=== PATIENT | male | born 1950 | race Caucasian/White ===

== ENCOUNTER → 2016-06-25 | Outpatient (CLI) | payer MEDICARE, BC ==
--- NOTE | 2016-06-25 08:52 | MR ---
EXAMINATION TYPE: MR shoulder RT wo con DATE OF EXAM: 06/25/2016 7:08 AM COMPARISON: NONE HISTORY: 66-year-old male with right shoulder pain TECHNIQUE: Multiplanar, multisequence imaging of the right shoulder is performed without contrast. FINDINGS: There appears to be an old healed fracture deformity of the posterior greater tuberosity and surgical neck. The fracture appears well healed now though a mild displacement, refer to sagittal T1 image 22 and 24 some roofing sales representative images. There is extensive abnormal signal of the intracapsular portion of the long head biceps tendon. There is tear of the superior half of the subscapularis tendon. Moderate to severe degenerative joint space narrowing with marginal spurring and capsular hypertrophy at the acromial clavicular joint. Undersurface spurring and hypertrophy joint impinge onto the under lying cuff. There is heterogeneous signal within the supraspinatus and infraspinatus tendons with a more extensiv e abnormal signal and tendon thickening along the junction of the infraspinatus and supraspinatus ten dons and suggestion of a superimposed deep articular sided tear measuring 5 mm AP by 6 mm long, sagit krystal image 22 and coronal image 18. There is bursal sided fraying more proximally at the junction of the supraspinatus and infraspinatus tendons just below lateral acromion and also involving the anterior to mid supraspinatus tendon fiber s. No full-thickness tear of the supraspinatus or infraspinatus tendons. There is a small glenohumeral joint effusion. Subchondral cystic changes seen along the superior rick oid with a large tear of the labrum extending from the biceps anchor down and around to the inferior aspect of the posterior labrum where a 6 mm paralabral cyst is present medially. Moderate to severe degenerative cartilage loss along the mid to inferior anterior humeral head with m arginal spurring, axial image 11. No atrophy of the rotator cuff musculature. There is trace fluid within the subacromial/subdeltoid bu rsa. No Hill-Sachs deformity or os acromiale. No suspicious bone marrow replacement. IMPRESSION: 1. Old well healed surgical neck and posterior greater tuberosity fracture deformities. 2. Underlying glenohumeral joint osteoarthrosis with cartilage loss along the anterior humeral head a nd a degenerated and torn glenoid labrum extending back from superior to inferior. 6 mm inferior para labral cyst. 3. Severe tendinosis at the junction of the supraspinatus and infraspinatus tendons with suggestion o f an underlying small but high-grade articular sided tear measuring 5 x 6 mm. No full-thickness tear is seen. 4. Additional areas of bursal sided fraying of the supraspinatus tendon. Moderate to severe AC joint osteoarthrosis with spurring and bony changes impinging onto the underlying cuff. 5. Tear of the superior half subscapularis tendon fibers and additional tendinosis and partial tear o f the intracapsular long head biceps tendon.
== END | disposition home or self-care (01) ==
LOC: RADMRIMAIN 06:27
PROVIDERS: ATTEND Orthopaedic Surgery
DX: M19.011 Primary osteoarthritis, right shoulder (principal); S43.431A Superior glenoid labrum lesion of right shoulder, initial encounter; M75.21 Bicipital tendinitis, right shoulder

== ENCOUNTER 2016-11-04 06:00 | Day surgery (SDC) | payer MEDICARE, BC ==
[2016-10-26 16:10] VITALS: BMI 32.5
[~2016-11-04 06:00] MED LIST: DEXAMETHASONE SOD PHOSPHATE 10 MG/ML 1 ML VIAL IV ONE; HYDROmorphone 1 MG/ML 1 ML SYRINGE IVP PRN; LACTATED RINGERS 1,000 ML IV SCH; LIDOCAINE 1% 20 ML VIAL (10MG/ML) FOR IV START INTRADERMA PRN; MIDAZOLAM 2 MG/2 ML VIAL IV PRN; ONDANSETRON 4 MG/2 ML VIAL IVP ONE; SCOPOLAMINE 1.5MG/72HR PATCH TRANSDERM ONE; ceFAZolin 2 GM in SODIUM CHLORIDE 0.9% 100 ML IVPB ONE; fentaNYL (PF) 50 MCG/ML 20 ML VIAL IVP PRN
--- NOTE | 2016-11-04 07:13 | P.HPOR ---
History of Present Illness H&P Date: 11/04/16 Chief Complaint: Right shoulder pain 66-year-old patient seen with progressive right shoulder pain. After having treatment options discussed, he elected to proceed with arthroscopy. Past Medical History Past Medical History: Hyperlipidemia, Hypertension, Osteoarthritis (OA), Sleep Apnea/CPAP/BIPAP Additional Past Medical History / Comment(s): does not use cpap History of Any Multi-Drug Resistant Organisms: None Reported Past Surgical History: Orthopedic Surgery Additional Past Surgical History / Comment(s): carpal tunnel dario. neck surgery x2 with titanium plates/screws pt states limited movement moving head to look down, lt shouder arthroscopy, lt arm ulnar nerve surgery, lt hand pinky -2 pins Past Anesthesia/Blood Transfusion Reactions: No Reported Reaction Additional Past Anesthesia/Blood Transfusion Reaction / Comment(s): pt states limited neck movement looking down since neck fusion Smoking Status: Former smoker - Past Family History Mother Family Medical History: No Reported History Medications and Allergies Home Medications Medication Instructions Recorded Confirmed Type Acetaminophen Tab [Tylenol Tab] 500 mg PO DAILY 10/26/16 11/04/16 History Acetaminophen [Tylenol Arthritis] 650 mg PO HS 10/26/16 11/04/16 History Aspirin/Caffeine [Anacin 400-32 mg 1 each PO TID PRN 10/26/16 11/04/16 History Tablet] Atorvastatin [Lipitor] 20 mg PO DAILY 10/26/16 11/04/16 History amLODIPine BESYLATE/BENAZEPRIL 1 cap PO DAILY 10/26/16 11/04/16 History [amLODIPine BESYLATE/BENAZEPRIL 5-20 mg] Allergies Allergy/AdvReac Type Severity Reaction Status Date / Time Penicillins Allergy water Verified 11/04/16 06:14 blisters Sulfa (Sulfonamide AdvReac blisters Verified 11/04/16 06:14 Antibiotics) Physical Examination Osteopathic Statement: *. No significant issues noted on an osteopathic structural exam other than those noted in the History and Physical/Consult. Right shoulder: Flexion 130, abduction 120, external rotation is 30 with pain and weakness. There is tenderness along the anterior lateral acromion and rotator cuff insertion site. Impingement sign is positive at 90. Distal neurovascular exam is intact. Results X-ray right shoulder: Type II anterior acromion, acromioclavicular joint osteoarthritis, old fracture at the greater tuberosity which appears well-healed MRI right shoulder: Rotator cuff tear, acromioclavicular joint osteoarthritis, partial biceps tendon tear Assessment and Plan Plan: Assessment: Right shoulder impingement with rotator cuff tear, acromioclavicular joint osteoarthritis and partial biceps tendon tear Plan: Arthroscopy right shoulder with subacromial decompression, possible arthroscopic rotator cuff tear, probable Сергей procedure, possible biceps tendon release and debridement
[2016-11-04] MEDS ORDERED: ROPIVACAINE 5 MG/ML 30 ML VIAL ONE (07:25)
[2016-11-04] MEDS ORDERED: fentaNYL (PF) 50 MCG/ML 2 ML AMP ONE (07:25)
[2016-11-04] MEDS ORDERED: PROPOFOL 10 MG/ML 20 ML VIAL IV ONE (07:25)
[2016-11-04] MEDS ORDERED: LIDOCAINE 2%-EPI 1:100,000 20 ML VIAL ONE (07:25)
[2016-11-04] MEDS ORDERED: NEOSTIGMINE 1 MG/ML 10 ML VIAL ONE (07:25)
[2016-11-04] MEDS ORDERED: MIDAZOLAM 2 MG/2 ML VIAL ONE (07:25)
[2016-11-04] MEDS ORDERED: PHENYLEPHRINE-0.9% NACL SYG 1 MG/10 ML SYRINGE ONE (07:25)
[2016-11-04] MEDS ORDERED: LIDOCAINE 1% INJ 10MG/ML (20 ML MDV) ONE (07:25)
[2016-11-04] MEDS ORDERED: GLYCOPYRROLATE 0.2 MG/ML 2 ML VIAL ONE (07:25)
[2016-11-04] MEDS ORDERED: ROCURONIUM BROMIDE 10 MG/ML 10 ML VIAL IV ONE (07:25)
[2016-11-04] MEDS ORDERED: SUCCINYLCHOLINE CHLORIDE 100 MG/5 ML SYR IV ONE (07:25)
[2016-11-04] MEDS ORDERED: LACTATED RINGERS 1,000 ML IV ONE (08:57)
[2016-11-04 09:14] VITALS: TEMP 96.8
--- NOTE | 2016-11-04 09:15 | P.OP ---
Date of Procedure: 11/04/16 Preoperative Diagnosis: Right shoulder impingement Postoperative Diagnosis: 1. Right shoulder rotator cuff tear 2. Right shoulder impingement 3. Right shoulder acromioclavicular joint osteoarthritis 4. Right shoulder partial long head biceps tendon tear 5. Right shoulder superficial superior/anterior labral tear Procedure(s) Performed: 1. Right shoulder arthroscopic rotator cuff repair 2. Right shoulder arthroscopic subacromial decompression 3. Right shoulder arthroscopic Сергей procedure 4. Right shoulder arthroscopic biceps tenotomy 5. Right shoulder arthroscopic debridement labral tear Implants: 1-4.5 peek anchors Anesthesia: GETA, regional (Shoulder block) Surgeon: Beau Hernandez Gear Keeper #1: Harjinder Kat Estimated Blood Loss (ml): 15 Pathology: none sent Condition: stable Disposition: PACU Indications for Procedure: 66-year-old patient seen with progressive right shoulder pain. After having treatment options discussed he elected to proceed with arthroscopy. Operative Findings: See description of procedure Description of Procedure: Patient underwent a shoulder block by department of anesthesia. The patient was then taken to the operative suite. The patient underwent a general anesthetic by the department of anesthesia. The patient was placed into a lateral position and secured. There was appropriate padding of the bony prominence. [] shoulder was then prepped and draped in normal sterile orthopedic fashion. We placed the extremity in 10 pounds of longitudinal traction. A posterior incision was now made for a posterior working portal site. The trocar and cannula were inserted into the glenohumeral joint. Arthroscopy was initiated. Spinal needle was now inserted anteriorly, to ascertain the anterior working portal site. An incision was now made in that area, a trocar was inserted followed by a probe. There was superficial tearing of both the superior and anterior labrum present. There were some grade 1 chondral malacia changes of glenoid fossa. There was about 50-60 percent partial tearing of the biceps tendon present. There was an obvious small rotator cuff tear visualized from the glenohumeral side. It appeared to involve the area of the distal supraspinatus anteriorly. The posterior and inferior labrum were intact. There were no loose bodies. I performed an arthroscopic biceps tenotomy. I debrided the labral tears down to stable tissue. The residual labrum was probed and found to be stable. Instruments now removed from subacromial space. Utilizing the posterior working portal site, the trocar and cannula were inserted into the subacromial space. Arthroscopy initiated. I made an incision 2 fingerbreadths lateral to the acromion. I introduced my trocar followed by my ArthroCare ablator. I now began ablating thick subacromial bursal tissue, which exposed the undersurface of the anterior acromion. This was diminished subacromial space. There was a very prominent anterior acromion. A motorized bur was introduced and a subacromial decompression was performed. I also excised some osteophytes off the inferior aspect of the distal clavicle. The AC joint was visualized and noted to be fairly arthritic. Our motorized bur was introduced in the anterior portal site and a Сергей procedure was performed without difficulty, decompressing the AC joint nicely. I turned my attention to the rotator cuff. We found the distal supraspinatus tendon tear anteriorly. I debrided the margins down to stable tissue. The tear was about 1-1.5 cm freely mobile over the footprint. I abraded the footprint with a motorized bur. I introduced 2 everted mattress sutures with good bites of rotator cuff tendon. I repaired the tendon back to the footprint with one single 4.5 peek anchor. The residual suture limbs were clipped. The repair was stable. I injected 1 mL Allogen intra-articular. Instruments now removed from the portal sites. All portal sites were approximated with nylon suture. Sterile dressings were applied followed by a shoulder immobilizer. Parveen WESLEY assisted with the procedure. The patient was awakened, transferred to a bed, and taken to recovery in stable condition.
[2016-11-04 09:36] VITALS: RESP 16
[2016-11-04] MEDS ORDERED: HYDROcodone/APAP 7.5-325MG 1 EACH TAB PO ONE (10:40)
[2016-11-04 10:46] VITALS: PULSE 84
[2016-11-04 11:16] VITALS: BP 133/80
== END 2016-11-04 11:47 | disposition home or self-care (01) ==
LOC: OR 06:00
PROVIDERS: ATTEND Orthopaedic Surgery
DX: M75.101 Unspecified rotator cuff tear or rupture of right shoulder, not specified as traumatic (principal); S46.111A Strain of muscle, fascia and tendon of long head of biceps, right arm, initial encounter; S43.401A Unspecified sprain of right shoulder joint, initial encounter; X58.XXXA Exposure to other specified factors, initial encounter; M25.711 Osteophyte, right shoulder; M19.011 Primary osteoarthritis, right shoulder; M75.41 Impingement syndrome of right shoulder; E78.5 Hyperlipidemia, unspecified; I10 Essential (primary) hypertension; Z79.899 Other long term (current) drug therapy; Z88.0 Allergy status to penicillin; Z88.2 Allergy status to sulfonamides
CPT/HCPCS: 64415; 29826; 29827; 29824; C1713; C1765; J2250; J1100; J2710; J0690; J2405; J2001; J3010; J2795; J2370; J0330; J2704

== ENCOUNTER → 2017-09-16 | Outpatient (CLI) | payer MEDICARE, BC ==
--- NOTE | 2017-09-16 13:06 | US ---
EXAMINATION TYPE: US kidneys/renal and bladder DATE OF EXAM: 09/16/2017 COMPARISON: NONE CLINICAL HISTORY: N39.0 Recurrent Urinary Tract Infection. EXAM MEASUREMENTS: Right Kidney: 11.2 x 5.3 x 5.3 cm Left Kidney: 11.1 x 6.3 x 5.2 cm Post Void Residual Volume: 61.0 mL Right Kidney: No hydronephrosis or masses seen Left Kidney: stone measuring 0.5 x 0.4 x 0.7cm, other tiny echogenic foci noted, possible stones Bladder: irregular wall noted when patient emptied Bilateral Jets seen: yes Normal Post Void Residual: no Cortical medullary differentiation is maintained. IMPRESSION: Findings suggest left nephrolithiasis.
== END | disposition home or self-care (01) ==
LOC: RADUSWWP 10:50
PROVIDERS: ATTEND Urology
DX: N39.0 Urinary tract infection, site not specified (principal)
CPT/HCPCS: 76770

== ENCOUNTER → 2017-12-09 | Outpatient (CLI) | payer MEDICARE, BC ==
--- NOTE | 2017-12-09 11:39 | XR ---
EXAMINATION TYPE: XR knee complete RT DATE OF EXAM: 12/09/2017 CLINICAL HISTORY: pain TECHNIQUE: Three views of the right knee are obtained. COMPARISON: None. FINDINGS: There is no acute fracture/dislocation. The tri-compartment joint spaces appear within no rmal limits. The overlying soft tissue appears unremarkable. IMPRESSION: There is no acute fracture or dislocation.ICD 10 NO FRACTURE, INITIAL EVALUATION
== END | disposition home or self-care (01) ==
LOC: RADXRMAIN 11:12
PROVIDERS: ATTEND Family Medicine
DX: M25.561 Pain in right knee (principal)

== ENCOUNTER → 2018-01-05 | Outpatient (CLI) | payer MEDICARE, BC ==
--- NOTE | 2018-01-05 20:59 | MR ---
EXAMINATION TYPE: MR knee RT wo con DATE OF EXAM: 01/05/2018 COMPARISON: Plain film 12/09/2017 HISTORY: Rt knee pain TECHNIQUE: Multiplanar, multisequence imaging of the right knee is performed without IV contrast. FINDINGS: MEDIAL MENISCUS: There is attenuation of the posterior horn of the medial meniscus towards the root w hich may be due to a partial tear, abnormal increased signal is present within the posterior horn of the medial meniscus, there may be some myxoid degeneration extending into the body LATERAL MENISCUS: Anterior and posterior horns are intact without tear. CRUCIATE LIGAMENTS: The anterior and posterior cruciate ligaments are intact and unremarkable. COLLATERAL LIGAMENTS: The medial collateral ligament and lateral collateral ligament complex are inta ct and unremarkable. EXTENSOR MECHANISM: Visualized quadriceps and patellar tendons are intact. EFFUSION: No significant suprapatellar joint effusion. POPLITEAL CYST: Minute semimembranosus gastrocnemius cyst noted TRICOMPARTMENT SPACES: Joint space loss in the medial compartment CARTILAGE: Grade 3 to grade IV chondromalacia at the posterior aspect of the patella, medial compartm ent BONE MARROW SIGNAL: Some probable reactive marrow signal change in the occipital tibia the subchondra l location as well as posterior patella OTHER: Question focal mass effect on the anterior aspect of the popliteal artery, axial image 10 and 11 is indeterminate. Some prepatellar soft tissue edema noted in the subcutaneous fat IMPRESSION: Osteoarthritis. There may be a partial tear of the root of the posterior horn of the medial meniscus, additional findings above. Indeterminate irregularity of the wall of the popliteal artery of questio nable clinical significance and may be related to calcification.
== END | disposition home or self-care (01) ==
LOC: RADMRIMAIN 16:56
PROVIDERS: ATTEND Orthopaedic Surgery
DX: M17.11 Unilateral primary osteoarthritis, right knee (principal)

== ENCOUNTER 2018-03-23 08:29 | Day surgery (SDC) | payer MEDICARE, BC ==
[2018-03-20 12:22] VITALS: BMI 31.4
--- NOTE | 2018-03-22 16:04 | HP ---
HISTORY AND PHYSICAL DATE OF SURGERY: 03/23/2018 Abraham Boles is a 67-year-old patient seen with progressive right knee pain. After treatment options were discussed with him, he elected to proceed with right knee arthroscopy. Consent was obtained. PAST MEDICAL HISTORY: Hypertension. PAST SURGICAL HISTORY: Noncontributory. DAILY MEDICATIONS: Amlodipine/benazepril. ALLERGIES: PENICILLIN and SULFA. SOCIAL HISTORY: Patient denies tobacco use. PHYSICAL EVALUATION OF RIGHT KNEE: Range of motion 0 to 130 degrees. Tenderness along the medial joint line. Positive medial Omega's. Ligaments stable. Hip rotation without pain. Distal neurovascular exam intact. RIGHT KNEE RADIOGRAPHS: Right knee radiographs revealed mild to moderate medial compartment osteoarthritis. Right knee MRI revealed a medial meniscal tear. IMPRESSION: Internal derangement of right knee with medial meniscal tear. PLAN: Right knee arthroscopy with partial meniscectomy and debridement. MMODL / IJN: [id number] /
[~2018-03-23 08:29] MED LIST changes: +HYDROmorphone 0.5 MG/0.5 ML SYRINGE IVP PRN; -HYDROmorphone 1 MG/ML 1 ML SYRINGE IVP PRN; -MIDAZOLAM 2 MG/2 ML VIAL IV PRN; -ceFAZolin 2 GM in SODIUM CHLORIDE 0.9% 100 ML IVPB ONE; +ceFAZolin IN SWFI 2 GM/20 ML SYRINGE IVP ONE; -fentaNYL (PF) 50 MCG/ML 20 ML VIAL IVP PRN
[2018-03-23 09:10] LABS: Glucose,Whole Blood 116 mg/dL (75-99)
[2018-03-23] MEDS ORDERED: PROPOFOL 10 MG/ML 20 ML VIAL IV ONE (09:24)
[2018-03-23] MEDS ORDERED: fentaNYL (PF) 50 MCG/ML 2 ML AMP ONE (09:24)
[2018-03-23] MEDS ORDERED: SUCCINYLCHOLINE CHLORIDE 100 MG/5 ML SYR IV ONE (09:24)
[2018-03-23] MEDS ORDERED: MIDAZOLAM 2 MG/2 ML VIAL ONE (09:24)
[2018-03-23] MEDS ORDERED: LIDOCAINE 1% INJ 10MG/ML (20 ML MDV) ONE (09:24)
[2018-03-23] MEDS ORDERED: BUPIVACAIN-EPI 0.25%-1:200,000 30 ML VIAL INTRAARTIC ONE (09:28)
--- NOTE | 2018-03-23 10:03 | P.OP ---
Date of Procedure: 03/23/18 Preoperative Diagnosis: Internal derangement right knee Postoperative Diagnosis: 1. Tear medial meniscus right knee 2. Grade 2/3 chondromalacia medial femoral condyle right knee 3. Reactive synovitis medial and suprapatellar compartments right knee Procedure(s) Performed: 1. Arthroscopic partial medial meniscectomy right knee 2. Arthroscopic chondroplasty medial femoral condyle right knee 3. Arthroscopic partial synovectomy medial and suprapatellar compartments right knee Anesthesia: GETA, local Surgeon: Beau Hernandez Estimated Blood Loss (ml): 5 Pathology: none sent Condition: stable Disposition: PACU Indications for Procedure: 67-year-old patient seen with progressive right knee pain. After we had treatment options discussed with him, he elected to proceed with arthroscopy. Operative Findings: See description of procedure Description of Procedure: Patient was taken to the operative suite. Patient underwent a general anesthetic by the department of anesthesia. Patient was given preoperative antibiotics. The right lower extremity was placed in a well-padded arthroscopic leg shannon. The right leg was prepped and draped in the normal sterile orthopedic fashion. A lateral parapatellar and suprapatellar incision was made. Trochars were inserted. Arthroscopy was initiated. Suprapatellar pouch revealed diffuse thick reactive synovitis. The patellofemoral joint appeared to articulate congruently. There was grade 1 chondromalacia changes of the patella with no osteochondral tears present. The scope was guided into the medial gutter. No loose body or plica were identified. The scope was then guided into the medial compartment. A medial parapatellar incision was made. Trocar inserted followed by probe. There was a radial tear posterior horn medial meniscus. There were grade 2/3 chondromalacia changes of the medial femoral condyle with some osteochondral tears present. There was thick reactive synovitis anteriorly. I performed a partial medial meniscectomy down to stable tissue. I performed a chondroplasty of the medial femoral condyle down to stable tissue. I performed a partial synovectomy decompressing the reactive synovitis anteriorly. The residual meniscus was stable. The residual osteochondral surface was stable. There was good decompression of the synovitis. Scope and probe were then guided into the intercondylar notch. Cruciates were identified, probed and found to be stable. The scope and probe were then guided into lateral compartment. Lateral meniscus was probed and found to be stable. There was no chondromalacia present. There was no synovitis present. The scope was in guided back into the suprapatellar compartment. I introduced a motorized shaver into the super patellar compartment. I debrided piecemeal fragments of meniscus I encountered. I performed a partial synovectomy decompressing the reactive synovitis. There was good decompression of the synovitis. The shaver was removed. I took one more look on the entire knee, no residual debris. Instruments were now removed from the joint. The joint was infiltrated with .25% Marcaine. Steri-Strips were applied to the portal sites. Sterile dressings were applied. The patient was placed into a ERIKA hose. No tourniquet was utilized. The patient was awakened, transferred to a bed and taken to recovery stable satisfactory condition.
[2018-03-23 10:10] VITALS: TEMP 97.1
[2018-03-23 10:48] VITALS: RESP 16
[2018-03-23 10:48] LABS: Glucose,Whole Blood 133 mg/dL (75-99)
[2018-03-23] MEDS ORDERED: HYDROcodone/APAP 5-325MG 1 EACH TAB PO ONE (11:03)
[2018-03-23 11:20] VITALS: BP 108/67; PULSE 66
== END 2018-03-23 11:36 | disposition home or self-care (01) ==
LOC: OR 08:29
PROVIDERS: ATTEND Orthopaedic Surgery
DX: S83.241A Other tear of medial meniscus, current injury, right knee, initial encounter (principal); X58.XXXA Exposure to other specified factors, initial encounter; M94.261 Chondromalacia, right knee; M22.41 Chondromalacia patellae, right knee; M65.861 Other synovitis and tenosynovitis, right lower leg; M17.11 Unilateral primary osteoarthritis, right knee; I10 Essential (primary) hypertension; E11.9 Type 2 diabetes mellitus without complications; E78.5 Hyperlipidemia, unspecified; G47.33 Obstructive sleep apnea (adult) (pediatric); N40.0 Benign prostatic hyperplasia without lower urinary tract symptoms; Z79.84 Long term (current) use of oral hypoglycemic drugs; Z79.899 Other long term (current) drug therapy; Z88.0 Allergy status to penicillin; Z88.2 Allergy status to sulfonamides
CPT/HCPCS: 29881; J2250; J1100; J2405; J2001; J3010; J0330; J2704; J0690

== ENCOUNTER → 2023-05-28 | Outpatient (CLI) | payer MEDICARE, BC ==
--- NOTE | 2023-06-03 14:08 | MR ---
EXAMINATION TYPE: MR shoulder RT wo con DATE OF EXAM: 05/28/2023 COMPARISON: 06/25/2016 HISTORY: Right shoulder pain. TECHNIQUE: Multiplanar, multisequence imaging of the right shoulder is performed without contrast. FINDINGS: There appears to be an old healed fracture deformity of the posterior greater tuberosity an d surgical neck. Remote right humeral fracture stable. There is extensive abnormal signal of the intracapsular portion of the long head biceps tendon. There is tear of the superior half of the subscapularis tendon. Moderate to severe degenerative joint space narrowing with marginal spurring and capsular hypertrophy at the acromial clavicular joint. Undersurface spurring and hypertrophy joint impinge onto the under lying cuff. There is abnormal signal involving the inferior glenohumeral ligament suspicious for strain or partia l tear. There is linear signal involving the humeral head which may be postoperative. There is heterogeneous signal within the supraspinatus and infraspinatus tendons with a more extensiv e abnormal signal and tendon thickening along the junction of the infraspinatus and supraspinatus ten dons and suggestion of a superimposed deep articular sided tear measuring 5 mm AP by 6 mm long. There is bursal sided fraying more proximally at the junction of the supraspinatus and infraspinatus tendons just below lateral acromion and also involving the anterior to mid supraspinatus tendon fiber s. No full-thickness tear of the supraspinatus or infraspinatus tendons. There is a small glenohumera l joint effusion. Subchondral cystic changes seen along the superior glenoid with a large tear of the labrum extending from the biceps anchor down and around to the inferior aspect of the posterior labrum where a 6 mm pa ralabral cyst is present medially. Moderate to severe degenerative cartilage loss along the mid to inferior anterior humeral head with m arginal spurring. No atrophy of the rotator cuff musculature. There is trace fluid within the subacr omial/subdeltoid bursa. No Hill-Sachs deformity or os acromiale. No suspicious bone marrow replacemen t. IMPRESSION: 1. Stable Old well healed surgical neck and posterior greater tuberosity fracture deformities. 2. Underlying glenohumeral joint osteoarthrosis with cartilage loss along the anterior humeral head a nd a degenerated and torn glenoid labrum extending back from superior to inferior. 3. Severe tendinosis at the junction of the supraspinatus and infraspinatus tendons with suggestion o f an underlying small but high-grade articular sided tear measuring 5 x 6 mm. No full- thickness tear is seen. Findings similar to prior exam. 4. Additional areas of bursal sided fraying of the supraspinatus tendon. Moderate to severe AC joint osteoarthrosis with spurring and bony changes impinging onto the underlying cuff. 5. Tear of the superior half subscapularis tendon fibers and additional tendinosis and partial tear o f the intracapsular long head biceps tendon. Findings similar to prior exam.
== END | disposition home or self-care (01) ==
LOC: RADMRIMAIN 11:56
PROVIDERS: ATTEND Orthopaedic Surgery
DX: M19.011 Primary osteoarthritis, right shoulder (principal); M67.813 Other specified disorders of tendon, right shoulder; M75.111 Incomplete rotator cuff tear or rupture of right shoulder, not specified as traumatic

== ENCOUNTER 2023-07-07 09:43 | Day surgery (SDC) | payer MEDICARE, BC ==
--- NOTE | 2023-07-06 23:44 | HP ---
HISTORY AND PHYSICAL DATE OF SCHEDULED SURGERY: 07/07/2023. HISTORY OF PRESENT ILLNESS: Abraham Boles is a 73-year-old gentleman seen with progressive right shoulder pain. We discussed options regarding the treatment. He elected to proceed with right shoulder arthroscopy. Consent is obtained. Medical clearance was provided by Dr. Mcrae. PAST MEDICAL HISTORY: Hypertension. SURGICAL HISTORY: Knee arthroscopy, rotator cuff repair, carpal tunnel release. DAILY MEDICATIONS: 1. Amlodipine. 2. Benazepril. 3. Metformin. ALLERGIES: Penicillin, sulfa. SOCIAL HISTORY: Denies tobacco use. PHYSICAL EVALUATION OF RIGHT SHOULDER: Flexion is 150 degrees, abduction is 140 degrees. External rotation is 10 degrees. No weakness or pain. Tenderness along the anterolateral acromion rotator cuff insertion sites. Impingement is positive at 100 degrees. Drop-arm sign is positive. Distal neurovascular exam is intact. RADIOGRAPHS: Right shoulder radiographs reveal cystic changes of the tuberosity. MRI right shoulder revealed rotator cuff tendon tear, acromioclavicular joint osteoarthritis, and labral tear. IMPRESSION: 1. Right shoulder impingement with rotator cuff tear. 2. Right shoulder acromioclavicular joint osteoarthritis. 3. Right shoulder labral tear. 4. Hypertension. 5. Hyperlipidemia. PLAN: Right shoulder arthroscopy with subacromial decompression, arthroscopic rotator cuff repair, Сергей procedure and debridement. MMODL / IJN: [id number] /
[2023-07-07] MEDS ORDERED: fentaNYL (PF) 50 MCG/ML 2 ML AMP IV PRN (09:58)
[2023-07-07] MEDS ORDERED: droPERidol 5 MG/2 ML VIAL IVP ONE (09:58)
[2023-07-07] MEDS ORDERED: LIDOCAINE 1% (10MG/ML) FOR IV START INTRADERMA PRN (09:58)
[2023-07-07 10:45] LABS: Glucose,Whole Blood 166 mg/dL (70-110)
[2023-07-07] MEDS: DEXAMETHASONE SOD PHOSPHATE 4 MG/ML 1 ML VIAL IV ONE (10:55)
[2023-07-07] MEDS: ONDANSETRON 4 MG/2 ML VIAL IVP ONE (10:55)
[2023-07-07] MEDS: fentaNYL (PF) 50 MCG/ML 2 ML AMP IVP ONE (11:06)
[2023-07-07] MEDS: MIDAZOLAM 2 MG/2 ML VIAL IVP ONE (11:06)
[2023-07-07] MEDS: LACTATED RINGERS 1,000 ML IV SCH (11:18)
[2023-07-07] MEDS ORDERED: PROPOFOL 10 MG/ML 20 ML VIAL IV ONE (11:21)
[2023-07-07] MEDS ORDERED: MIDAZOLAM 2 MG/2 ML VIAL ONE (11:21)
[2023-07-07] MEDS ORDERED: ROPIVACAINE 5 MG/ML 30 ML VIAL ONE (11:21)
[2023-07-07] MEDS ORDERED: fentaNYL (PF) 50 MCG/ML 2 ML AMP ONE (11:21)
[2023-07-07] MEDS ORDERED: KETOROLAC 15 MG/ML 1 ML VIAL ONE (11:21)
[2023-07-07] MEDS ORDERED: SUCCINYLCHOLINE CHLORIDE 200 MG/10 ML VIAL IV ONE (11:21)
[2023-07-07] MEDS ORDERED: LIDOCAINE 1% INJ 10MG/ML (20 ML MDV) ONE (11:21)
[2023-07-07] MEDS ORDERED: PHENYLEPHRINE 10 MG/ML VIAL ONE (11:21)
--- NOTE | 2023-07-07 12:41 | P.OP ---
Date of Procedure: 07/07/23 Preoperative Diagnosis: Right shoulder impingement Postoperative Diagnosis: 1. Right shoulder rotator cuff tear 2. Right shoulder impingement 3. Right shoulder superficial labral tear 4. 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 Right shoulder arthroscopic rotator cuff repair 2. Right shoulder arthroscopic subacromial decompression 3. Right shoulder arthroscopic debridement labral tear 4. Right shoulder chondroplasty glenoid fossa Implants: 1Arthrex 4.75 swivel lock anchor Anesthesia: GETA, regional (Interscalene block) Surgeon: Beau Hernandez Swatch Folder #1: Harjinder Kat Estimated Blood Loss (ml): 8 Pathology: none sent Condition: stable Disposition: PACU Indications for Procedure: 73-year-old gentleman seen with progressive right shoulder pain. After having treatment options discussed, he elected to proceed with arthroscopy. Operative Findings: See description of procedure Description of Procedure: Patient underwent an interscalene block by department of anesthesia. The patient was then taken to the operative suite. The patient underwent a general anesthetic by the department of anesthesia. The patient was placed into a lateral position and secured. There was appropriate padding of the bony prominence. Right shoulder was then prepped and draped in normal sterile orthopedic fashion. We placed the extremity in 10 pounds of longitudinal traction. A posterior incision was now made for a posterior working portal site. The trocar and cannula were inserted into the glenohumeral joint. Arthroscopy was initiated. Spinal needle was now inserted anteriorly, to ascertain the anterior working portal site. An incision was now made in that area, a trocar was inserted followed by a probe. There was some superficial tearing of the superior labrum present. There were grade III chondromalacia changes of the glenoid fossa with some osteochondral flap tears along the anterior aspect. There was grade I chondromalacia of the humeral head without tears. The biceps tendon was absent with history of previous biceps tenotomy. I used a motorized shaver and debrided out the superficial labral tear. I now performed a chondroplasty of the glenoid fossa. The residual labrum was stable. The residual osteochondral surface of the glenoid fossa appeared stable. Instruments were now removed from the glenohumeral joint. Utilizing the posterior working portal site, the trocar and cannula were inserted into the subacromial space. Arthroscopy initiated. I made an incision 2 fingerbreadths lateral to the acromion. I introduced my trocar followed by my ArthroCare ablator. I now began ablating thick subacromial bursal tissue, which exposed the undersurface of the anterior acromion. There was a residual spur along the anterior aspect of the acromion. I used a motorized bur and performed a decompression there. We had good decompression of subacromial space at this point. I now visualized the acromioclavicular joint with evidence of previous Сергей procedure. It was stable. I turned my attention to the rotator cuff tendon. There was a tear along the distal supraspinatus tendon measuring about a centimeter. I debrided the margins getting down to stable tendon tissue. The tear was just anterior to her previous repair. The tear now measured about 1.5 cm but was freely mobile over the footprint. I abraded the footprint with a motorized bur. With the assistance of Parveen WESLEY I passed 3 inverted mattress sutures through good bites of rotator cuff tendon. I punched a hole in the footprint area for insertion of an anchor. All 6 limbs of suture were passed through the eyelet of an Arthrex 4.75 swivel lock anchor. I placed the eyelet into our prepunched hole. I held in position while Parveen WESLEY tensioned all 6 limbs of suture and deployed the anchor with good fixation noted. All residual suture limbs were now clipped. We had good compression of the tendon along the entire footprint. Instruments now removed from the portal sites. All portal sites were approximated with nylon suture. Sterile dressings were applied followed by a shoulder sling. Harjinder WESLEY assisted in all aspects of this case. The patient was awakened, transferred to a bed, and taken to recovery in stable condition.
[2023-07-07 13:13] VITALS: TEMP 96.9
[2023-07-07 13:57] VITALS: BP 130/87; PULSE 65; RESP 18
--- NOTE | 2023-07-07 15:17 | P.ANPRN ---
Procedure Note - Anesthesia - Nerve Block Performed Right Interscalene Single Time Out Performed: Yes (1105) Date of Procedure: 07/07/23 Procedure Start Time: 11:06 Procedure Stop Time: 11:11 Location of Patient: PreOp Indication: Acute Post-Operative Pain, Requested by Surgeon Specifically requested for management of pain by DrNima: Beau Hernandez Sedation Type: Sedate with meaningful contact maintained Preparation: Sterile Prep Position: Supine Catheter: None Needle Types: Pajunk Needle Gauge: 21 Ultrasound used to visualize needle placement: Yes Ultrasound used to observe medication spread: Yes Injectate: 0.5% Ropivacaine (see comment for volume) (30CC) Blood Aspirated: No Pain Paresthesia on Injection Noted: No Resistance on Injection: Normal Image Stored and Saved: Yes Events: Uneventful and Well Tolerated
== END 2023-07-07 14:01 | disposition home or self-care (01) ==
LOC: OR 09:43
PROVIDERS: ATTEND Orthopaedic Surgery
DX: S46.011A Strain of muscle(s) and tendon(s) of the rotator cuff of right shoulder, initial encounter (principal); S43.491A Other sprain of right shoulder joint, initial encounter; M19.011 Primary osteoarthritis, right shoulder; M25.811 Other specified joint disorders, right shoulder; I10 Essential (primary) hypertension; M94.211 Chondromalacia, right shoulder; G89.18 Other acute postprocedural pain; E78.5 Hyperlipidemia, unspecified; Z88.0 Allergy status to penicillin; Z88.2 Allergy status to sulfonamides; Z79.899 Other long term (current) drug therapy; X58.XXXA Exposure to other specified factors, initial encounter
CPT/HCPCS: 64415; 29826; 29827; C1713; J2250; J0330; J1100; J0690; J2405; J2001; J3010; J2795; J1885; J2704; J2371